=== PATIENT | female | born 1995 | race Two or more races ===

== ENCOUNTER 2018-12-20 15:45 | Emergency (ER) | payer MEDICAID ==
[~2018-12-20] VITALS: Ht 165.1 cm; Wt 59.4 kg
[2018-12-20 15:55] VITALS: BP 102/63
== END 2018-12-20 16:09 | disposition home or self-care (01) ==
LOC: ER 15:52
DX: Z30.012 Encounter for prescription of emergency contraception (principal); F84.0 Autistic disorder

== ENCOUNTER 2019-05-16 16:21 | Emergency (ER) | payer BC ==
[~2019-05-16] VITALS: Ht 165.1 cm; Wt 61.2 kg
--- NOTE | 2019-05-16 16:40 | NUR ---
BIB FRIEND C/O COUGH/ CONGESTION X1 MONTH, R RIB PAIN S/P GLF 2DAYS AGO. PATIENT A/OX4, BREATHING EVEN AND UNLABORED, NO SOB NOTED. KEPT COMFORTABLE.
[2019-05-16 16:55] LABS: APPEARANCE,URINE Clear (CLEAR); BILIRUBIN,URINE Negative (NEGATIVE); BLOOD, URINE Negative Ery/uL (NEGATIVE); COLOR,URINE Yellow (YELLOW); KETONES,URINE Negative (NEGATIVE); LEUKOCYTE ESTERASE ,URINE Negative (NEGATIVE); NITRITE, URINE Negative (NEGATIVE); PROTEIN,URINE Negative (NEGATIVE); UGLUCOSE Negative (NEGATIVE); UROBILINOGEN,URINE 0.2 EU/dL (0.2)
--- NOTE | 2019-05-16 17:30 | NUR ---
Patient is resting comfortably in bed with eyes closed. Easily aroused.
[2019-05-16] MEDS ORDERED: ACETAMINOPHEN ES 500 MG TABLET ONE (17:50)
[2019-05-16] MEDS ORDERED: ACETAMINOPHEN 325 MG TABLET PO ONE (18:00)
[2019-05-16 18:50] VITALS: BP 137/80
--- NOTE | 2019-05-16 18:51 | NUR ---
Patient discharged to home in stable condition. Written and verbal after care instructions given. Patient verbalizes understanding of instruction.
== END 2019-05-16 18:51 | disposition home or self-care (01) ==
LOC: ER 16:29
DX: S20.211A Contusion of right front wall of thorax, initial encounter (principal); J40 Bronchitis, not specified as acute or chronic; F84.0 Autistic disorder; W01.0XXA Fall on same level from slipping, tripping and stumbling without subsequent striking against object, initial encounter; Y93.89 Activity, other specified; Y92.89 Other specified places as the place of occurrence of the external cause; Y99.8 Other external cause status
CPT/HCPCS: 71100-TC; 74018; 81000-TC; 84703-TC

== ENCOUNTER 2019-09-18 17:34 | Emergency (ER) | payer BC ==
[~2019-09-18] VITALS: Ht 162.6 cm; Wt 65.8 kg
[2019-09-18 18:16] VITALS: BP 117/72
== END 2019-09-18 18:34 | disposition home or self-care (01) ==
LOC: ER 17:39
DX: S81.012D Laceration without foreign body, left knee, subsequent encounter (principal); X58.XXXD Exposure to other specified factors, subsequent encounter

== ENCOUNTER 2021-05-16 06:18 | Emergency (ER) | payer BC, OTHER ==
[~2021-05-16] VITALS: Ht 165.1 cm; Wt 68.0 kg
--- NOTE | 2021-05-16 06:32 | NUR ---
PRESENTED TO THE ER FOR EVALUATION OF MIDSTERNAL NON- RADIATING CP /10 FOR 30 MIN. PT DENIED SOB , N/V OR DIZINESS. AMBULATORY W/ STEADY GATIS TO BED 6, WAS PLACED ON MONITOR, VSS. WILL CONT TO MONITOR ,
--- NOTE | 2021-05-16 06:34 | NUR ---
SEEN AND ASSESSED BY DR DRIVER
[2021-05-16 06:40] VITALS: BP 95/66
--- NOTE | 2021-05-16 06:40 | NUR ---
Patient discharged to home in stable condition. Written and verbal after care instructions given. Patient verbalizes understanding of instruction.
== END 2021-05-16 06:40 | disposition home or self-care (01) ==
LOC: ER 06:22
DX: R07.89 Other chest pain (principal); F84.0 Autistic disorder

== ENCOUNTER 2021-05-25 18:51 | Emergency (ER) | payer OTHER ==
[~2021-05-25] VITALS: Ht 165.1 cm; Wt 70.8 kg
[2021-05-25] MEDS ORDERED: ONDANSETRON HCL/PF 4 MG/2 ML VIAL ONE (19:22)
[2021-05-25] MEDS ORDERED: IV NS 0.9% 1,000 ML BAG IV ONE (19:30)
[2021-05-25] MEDS ORDERED: ONDANSETRON HCL/PF 4 MG/2 ML VIAL IVP ONE (19:30)
--- NOTE | 2021-05-25 19:31 | NUR ---
ADDENDUM: Intravenous End Time Documentation: Normal saline 1 liter (IV-WO) : start time:1930 ; end time:2019 : IV site: LAC PIV # 20 Port # 1
--- NOTE | 2021-05-25 19:42 | NUR ---
URINE COLLECTED AND SENT TO LAB
[2021-05-25 19:59] LABS: BILIRUBIN,URINE NEGATIVE (NEGATIVE); COLOR,URINE YELLOW (YELLOW); LEUKOCYTE ESTERASE ,URINE LARGE (NEGATIVE); NITRITE, URINE NEGATIVE (NEGATIVE); PH,URINE 7.5 (5.0-8.0); PROTEIN,URINE NEGATIVE (NEGATIVE); UGLUCOSE NEGATIVE (NEGATIVE); UROBILINOGEN,URINE 0.2 EU/dL (0.2)
[2021-05-25 20:05] LABS: BACTERIA,URINE 2+ /HPF (None Seen); MUCUS,URINE Few /LPF (None Seen); SQUAMOUS EPITHELIAL CELL,UR Few /HPF (None Seen); URINE AMORPHOUS PHOSPHATES Few /HPF (None Seen); WBC,URINE 21-50 /HPF (0-3)
[2021-05-25 20:07] LABS: BASOPHILS % (AUTO) 0.8 % (0.0-2.0); EOSINOPHILS % (AUTO) 1.6 % (0.0-6.0); HEMATOCRIT 41 % (33-45); LYMPHOCYTES # (AUTO) 1.8 K/uL (0.8-4.8); LYMPHOCYTES % (AUTO) 27.8 % (20.0-44.0); MEAN CORPUSCULAR HGB CONC 34 g/dl (31.0-36.0); MEAN CORPUSCULAR VOLUME 99 fL (82-100); MONOCYTES # (AUTO) 0.6 K/uL (0.1-1.30); MONOCYTES % (AUTO) 9.9 % (2.0-12.0); NEUTROPHILS # (AUTO) 3.8 K/uL (1.8-8.9); NEUTROPHILS % (AUTO) 59.9 % (43.0-81.0); PLATELET COUNT (AUTO) 225 K/uL (150-450); RED BLOOD CELL COUNT(AUTO) 4.18 MIL/uL (4.0-5.2); WHITE BLOOD COUNT (AUTO) 6.3 K/uL (4.3-11.0)
[2021-05-25 20:08] LABS: BILIRUBIN,DIRECT 0.1 mg/dL (0.0-0.2); BILIRUBIN,TOTAL 0.3 mg/dL (0.2-1.0); CALCIUM, SERUM 8.5 mg/dL (8.5-10.1); CREATININE 0.7 mg/dL (0.6-1.3); POTASSIUM 3.6 mmol/L (3.5-5.1); TOTAL PROTEIN, SERUM 8.3 g/dL (6.4-8.2)
[2021-05-25] MEDS ORDERED: ONDA4TAB11 PO (20:20)
[2021-05-25] MEDS ORDERED: CEPH500T PO (20:20)
[2021-05-25 20:26] VITALS: BP 110/80
--- NOTE | 2021-05-25 20:26 | NUR ---
Patient discharged to home in stable condition. Written and verbal after care instructions given. Patient verbalizes understanding of instruction.
== END 2021-05-25 20:27 | disposition home or self-care (01) ==
LOC: ER 18:53
DX: N39.0 Urinary tract infection, site not specified (principal); G43.909 Migraine, unspecified, not intractable, without status migrainosus; F84.0 Autistic disorder; F43.10 Post-traumatic stress disorder, unspecified; Z79.899 Other long term (current) drug therapy
CPT/HCPCS: 36415; 80048; 80076; 81001; 83690; 84703; 85025; 87086; 96361; 96374; 99283; J2405; J7030

== ENCOUNTER 2025-03-01 11:26 | Emergency (ER) | payer OTHER ==
[~2025-03-01] VITALS: Ht 165.1 cm; Wt 90.7 kg
[~2025-03-01 11:26] MED LIST: CEPH500T PO; ONDA4TAB11 PO
[2025-03-01] MEDS: IBUPROFEN 600 MG TABLET PO ONE ×2 (12:27→12:31)
[2025-03-01] MEDS ORDERED: PSEUDOEPHEDRINE HCL 30 MG TABLET ONE (12:28)
[2025-03-01] MEDS ORDERED: IBUPROFEN 600 MG TABLET ONE (12:28)
[2025-03-01] MEDS: PSEUDOEPHEDRINE HCL 30 MG TABLET PO ONE (12:31)
[2025-03-01] MEDS ORDERED: ALBU18HF2 INH (13:46)
[2025-03-01] MEDS ORDERED: BENZ-13 PO (13:46)
[2025-03-01 13:52] VITALS: BP 130/75; TEMP 98.5; O2SAT 99
== END 2025-03-01 13:54 | disposition home or self-care (01) ==
LOC: ER 11:26
DX: R07.9 Chest pain, unspecified (principal); R05.9 Cough, unspecified; R09.81 Nasal congestion; J34.89 Other specified disorders of nose and nasal sinuses; F84.0 Autistic disorder
CPT/HCPCS: 71045-TC